=== PATIENT | male | born 1990 | race Caucasian/White ===

== ENCOUNTER 2023-09-02 16:52 | Emergency (ER) | payer OTHER, SELFPAY ==
[2023-09-02 16:55] VITALS: BP 182/113
[2023-09-02 17:40] LABS: % Basophils 0.4 % (0-2); % Eosinophils 0.4 % (0-6); % Immature Granulocytes 0.4 % (0-0.5); % Lymphocytes 22.5 % (20.5-51.1); % Monocytes 6.5 % (1.7-9.3); % Neutrophils 69.8 % (42.2-75.2); Absolute Lymphocytes 1.8 10^3/uL (1.2-3.4); Absolute Monocytes 0.5 10^3/uL (0.1-0.6); Absolute Neutrophils 5.5 10^3/uL (1.4-6.5); Hematocrit 39.1 % (39.0-52.0); Hemoglobin 14.5 g/dL (13.0-18.0); Mean Corp Hgb Conc. 37.1 g/dL (33.0-37.0); Mean Corpuscular Hgb 31.8 pg (27.0-31.0); Mean Corpuscular Volume 85.7 fL (80.0-94.0); Nucleated Red Blood Cells % 0 % (-); Platelet Count 175 10^3/uL (130-400); Red Blood Cell Count 4.56 10^6/uL (4.70-6.10); Red Cell Dist. Width 13.2 % (11.5-14.5); White Blood Cell Count 7.8 10^3/uL (4.8-10.8)
[2023-09-02 17:47] LABS: ALT (SGPT) 44 U/L (0-50); AST (SGOT) 47 U/L (17-59); Albumin 4.5 g/dl (3.5-5.0); Alkaline Phosphatase 78 U/L (38-126); Blood Urea Nitrogen 10 mg/dl (9-20); Carbon Dioxide 24 mmol/L (22-30); Chloride 103 mmol/L (98-107); Glucose 95 mg/dl (70-99); Potassium 3.4 mmol/L (3.5-5.1); Sodium 135 mmol/L (135-145); Total Bilirubin 1.4 mg/dl (0.2-1.3); eGFR > 60.00
[2023-09-02 17:57] LABS: NT-proBNP 189 pg/ml; Troponin I < 0.012 ng/ml
[2023-09-02 21:05] VITALS: BP 159/99
--- NOTE | 2023-09-02 21:26 | ED.GENMED ---
History of Present Illness
General
Chief Complaint: Chest Pain
Source: patient and family (Father)
Exam Limitations: none
Time Seen by Provider: 09/02/23 21:09
Travel History
Have you had any contact with someone who has COVID-19?: No
Do you have any symptoms of coronavirus? Fever > 100 degrees, chills, cough, shortness of breath, sore throat, loss of taste or smell, muscle aches, or headache?: No
History of Present Illness
History of Present Illness:
Patient has had ongoing issues with blood pressure control. This is been going on for years. Currently on valsartan and metoprolol. He feels like he has had diffuse swelling mostly in his legs. He was given a diuretic by his physician also
without improvement. Also at times feels tingling in his arms and legs. Denies chest pain or shortness of breath.
Past History
Past History
ED Past Medical History: HTN, Other (Splenic laceration) and Other (anxiety)
ED Past Surgical History: Appendectomy
Social History
Tobacco: Smoker
Alcohol: Occasional
Drug: Marijuana (occasional) and Narcotics
Personal: Single
Living: with family
Family History
Family History: Negative Diabetes, Hypertension, Early CAD, Asthma or Cancer
Review of Systems
Review of Systems
All Other Systems: Not applicable
Constitutional: Denies fever, weight gain or weight loss
Respiratory: Denies trouble breathing
Cardiac: Denies chest pain
Phy Exam
Physical Exam
Physical Exam:
GENERAL: Alert and oriented in no apparent distress
EYE: Orbits normal.
NECK: Supple, no thyroid palpable
ENT: Pharynx without erythema
CARDIAC: Regular rate and rhythm without any obvious murmurs.
LUNGS: Clear breath sounds,normal
ABDOMEN: Soft, without focal tenderness or distention
NEUROLOGICAL: Alert and oriented , grossly non-focal
SKIN: Warm and dry, no rash or lesion, no discoloration, skin intact.
MUSCULOSKELETAL: Minimal bilateral lower extremity pitting no edema,no deformity.Good color
PSYCH: Normal and appropriate interaction.
Scores
Heart Score for Chest Pain Patients
STEMI patient?: Not applicable
Course
Orders/Labs/Results
Orders:
Orders
09/02/23 17:01
Electrocardiogram (*1) Urgent
Reason for Study: Chest Pain
EKG- Treatment ONCE
09/02/23 17:08
Complete Blood Count/With Diff Urgent
Comprehensive Metabolic Panel Urgent
NT-proBNP Urgent
TSH Reflex To Free T4 Urgent
Comment: ADD ON
Total Thyroxine Urgent
Comment: ADD ON
Troponin I Urgent
09/02/23 21:16
US Periph Venous LOWER Ext Dustin Urgent
Comment:
Reason For Exam: swelling
09/02/23 21:17
Add On- LAB Urgent
Tests Added?: tsh reflex t4
09/02/23 21:28
Urinalysis Urgent
Date Specimen was Collected: 09/02/23
Time Specimen was Collected: 21:21
09/02/23 22:31
Potassium Chloride 10% Elixir [KCl Elixir] 40 meq PO NOW STA
Abnormal Lab Results
09/02/23
17:08
RBC 4.56 L 10^6/uL
(4.70-6.10)
MCH 31.8 H pg
(27.0-31.0)
MCHC 37.1 H g/dL
(33.0-37.0)
Potassium 3.4 L mmol/L
(3.5-5.1)
Total Bilirubin 1.4 H mg/dl
(0.2-1.3)
09/02/23 17:08
09/02/23 17:08
Vital Signs
Initial and Last Documented VS:
Initial Vital Signs
Temp Pulse Resp BP Pulse Ox
99.2 F 66 20 182/113 99
09/02/23 16:55 09/02/23 16:55 09/02/23 16:55 09/02/23 16:55 09/02/23 16:55
Last Documented Vital Signs
Temp Pulse Resp BP Pulse Ox
99.2 F 63 17 159/99 96
09/02/23 16:55 09/02/23 21:06 09/02/23 21:06 09/02/23 21:05 09/02/23 21:06
*Radiology
Radiology exam reviewed: radiology read reviewed (Negative ultrasounds)
*Pulse Oximetry
Patient hypoxic: no
*EKG
Interpreted by ED Provider?: Yes
Interpretation: normal
Comparison EKG: no changes
Heart Rate: 67
Rate: normal
Rhythm: sinus
[place]: normal axis
Interval: normal interval
QRS Pattern: normal QRS
Ischemia: no ischemia
*Critical Care Note
Total Time (30-74mins, 75-104mins- exclusive of procedures): Not Applicable
Update Note
Update Note:
Patient is remained medically stable and nontoxic. No serious etiology for his symptoms. Very minimal hypokalemia. Patient has had ongoing hypertension with some difficulties managing this. Feel nephrology follow-up is reasonable.
ED Attending Note
-
Portions of this chart may have been created with voice recognition software.� Occasional wrong word or��sound alike� substitutions may have occurred due to the inherent limitations of voice recognition software.
Discharge Plan
Departure
Patient Disposition: Home (Routine Discharge)
Date of Disposition: 09/02/23
Time of Disposition: 22:55
Patient with high blood pressure during this ER visit?: Yes
Discharge Problem:
Peripheral edema, Mild hypokalemia, Hypertension
Instructions: Swelling, BLOOD PRESSURE
Prescriptions:
No Action
cetirizine 10 MG tablet
10 mg PO DAILY
omeprazole magnesium [Prilosec OTC] 20 MG tablet,delayed release (DR/EC)
20 mg PO DAILY
ibuprofen 200 MG tablet
800 mg PO Q8HPRN PRN (Reason: pain)
cephalexin 500 MG capsule
500 mg PO QID Qty: 40 0RF
Referrals:
Sarkis Soto DO [Active] - Next open appointment
Mateo Maxwell DO [Family Provider] - Follow up in 2-3 days
Interventions
Interventions:
*Risk Screen - Suicide Last Done: 09/02/23 16:55
*General Assessment Last Done: 09/02/23 16:55
*Neglect/Abuse Screening Last Done: 09/02/23 16:55
Discharge Date and Time
Print Language: SWISS
[2023-09-02 21:49] LABS: Urine Albumin Negative (Neg - Trace); Urine Bilirubin Negative (Negative); Urine Character Clear (Clear); Urine Color Yellow; Urine Glucose Negative (Negative); Urine Ketone Negative (Negative); Urine Leukocyte Negative (Negative); Urine Nitrite Negative (Negative); Urine Occult Blood Negative (Negative); Urine Urobilinogen Negative (Neg - 1+)
[2023-09-02 22:24] VITALS: BP 147/94
[2023-09-02 23:00] VITALS: BP 143/99
[2023-09-02] MEDS: KCL ELIXIR 40 MEQ PO (23:03)
[2023-09-02 23:10] LABS: Total Thyroxine 5.69 ug/dl (5.5-11.0)
== END 2023-09-02 23:08 | disposition home or self-care (01) ==
LOC: EMR 16:52
PROVIDERS: Student in an Organized Health Care Education/Training Program; EMERGENCY PHYSICIAN Emergency Medicine; FAMILY PHYSICIAN Family Medicine
DX: R60.0 Localized edema (principal); E87.6 Hypokalemia; I10 Essential (primary) hypertension; F17.200 Nicotine dependence, unspecified, uncomplicated
CPT/HCPCS: 99285; 80053; 81003; 83880; 84436; 84443; 84484; 85025; 93005; 93970